=== PATIENT | female | born 1990 | race African-American/Black ===

== ENCOUNTER 2018-04-18 14:38 | Emergency (ER) | payer OTHER, SELFPAY ==
--- NOTE | 2018-04-18 16:07 | RAD ---
RIGHT FINGERS FOUR VIEWS: History: 27-year-old female with history of third finger pain and swelling. FINDINGS: There appears to be some bandage material overlying the middle finger at the level of the middle phal anx, primarily medially and volarly. No evidence for fracture or dislocation. No overt metal foreign body. No evidence of bony destruction to suggest osteomyelitis. IMPRESSION: Some soft tissue swelling with prominent overlying bandage involving the middle finger without bony i nvolvement or metal foreign body. POS: [facility]
== END 2018-04-18 16:27 | disposition home or self-care (01) ==
LOC: SCSER 14:38
DX: M25.441 Effusion, right hand (principal)

== ENCOUNTER 2020-04-30 20:34 | Emergency (ER) | payer OTHER, SELFPAY ==
[2020-04-30] MEDS ORDERED: Acetaminophen 500 MG TAB ONE (22:02)
[2020-05-01 14:14] LABS: SARS-CoV-2 MS2 Positive; SARS-CoV-2 N Gene Negative; SARS-CoV-2 S Gene Negative; SARS-CoV-2 by NAA Not Detected (NotDetected); SARS-CoV-2 orf1ab Negative
== END 2020-04-30 22:20 | disposition home or self-care (01) ==
LOC: ERS 20:34
DX: J02.9 Acute pharyngitis, unspecified (principal); Z20.828 Contact with and (suspected) exposure to other viral communicable diseases
CPT/HCPCS: 87081; 87430; 87635; 99283; U0003

== ENCOUNTER 2022-06-22 14:52 | Emergency (ER) | payer OTHER, SELFPAY | END 2022-06-22 15:36 | disposition short-term general hospital (02) | LOC: ERS 14:52 | DX: O99.891 Other specified diseases and conditions complicating pregnancy (principal); R10.30 Lower abdominal pain, unspecified; Z3A.28 28 weeks gestation of pregnancy | CPT/HCPCS: 99284 ==